=== PATIENT | female | born 1985 | race American Indian/Alaskan Native ===

== ENCOUNTER 2017-09-17 17:22 | Emergency (ER) | payer SELFPAY ==
[2017-09-17 17:31] VITALS: BP 124/88
[2017-09-17] MEDS ORDERED: NACL 0.9% 500 ML IR ONE (20:36)
[2017-09-17] MEDS ORDERED: XYLOCAINE 1% 20 mL ONE (20:47)
[2017-09-17] MEDS ORDERED: TYLENOL PO ONE (21:19)
[2017-09-17] MEDS ORDERED: MOTRIN PO ONE (21:19)
[2017-09-17] MEDS ORDERED: BOOSTRIX IM ONE (21:19)
[2017-09-17] MEDS ORDERED: XYLOCAINE 1% 20 mL INFILTRATI ONE (21:19)
--- NOTE | 2017-09-17 21:24 | Emergency Department Report ---
ED General Adult HPI - General Chief complaint: Fall Stated complaint: CHIN LAC Time Seen by Provider: 09/17/17 20:30 Source: patient Mode of arrival: Ambulatory Limitations: No Limitations - History of Present Illness Initial comments: This is a 32-year-old female who is unknown to this provider, reports that she is not . The patient presents to the ER with a complaint of chin laceration after mechanical trip and fall. Denies headache, neck pain, chest pain, abdominal pain, shortness of breath, weakness, numbness, unsteady gait. Patient can't recall her last tetanus vaccination, and she states that she is not . She thinks that she passed out for a quick second after the impact. -: Sudden Location: face Severity scale (0 -10): 0 Quality: aching Consistency: intermittent Improves with: rest Worsens with: movement Associated Symptoms: denies: confusion, chest pain, cough, diaphoresis, fever/ chills, headaches, loss of appetite, malaise, nausea/vomiting, rash, seizure, shortness of breath, syncope, weakness - Related Data Previous Rx's Medication Instructions Recorded Last Taken Type Acetaminophen [Tylenol Arthritis] 650 mg PO Q6HR PRN #30 tablet.er 09/17/17 Unknown Rx Bacitracin Zinc Oint [Antibiotic 20 applic TP BID #1 tube 09/17/17 Unknown Rx Oint] Ibuprofen [Motrin] 600 mg PO Q8H PRN #30 tablet 09/17/17 Unknown Rx Allergies Allergy/AdvReac Type Severity Reaction Status Date / Time No Known Allergies Allergy Unverified 09/17/17 17:28 ED Review of Systems ROS: Stated complaint: CHIN LAC Other details as noted in HPI Constitutional: denies: fever Eyes: denies: eye discharge ENT: denies: epistaxis Respiratory: denies: cough Cardiovascular: syncope. denies: chest pain Gastrointestinal: denies: abdominal pain, nausea, vomiting Genitourinary: denies: dysuria Musculoskeletal: denies: back pain Skin: other (laceration) Neurological: denies: weakness Psychiatric: denies: anxiety ED Past Medical Hx - Past Medical History Previous Medical History?: No - Surgical History Past Surgical History?: No - Social History Smoking Status: Current Every Day Smoker Substance Use Type: None - Medications Home Medications: Home Medications Medication Instructions Recorded Confirmed Last Taken Type Acetaminophen [Tylenol Arthritis] 650 mg PO Q6HR PRN #30 tablet.er 09/17/17 Unknown Rx Bacitracin Zinc Oint [Antibiotic 20 applic TP BID #1 tube 09/17/17 Unknown Rx Oint] Ibuprofen [Motrin] 600 mg PO Q8H PRN #30 tablet 09/17/17 Unknown Rx ED Physical Exam - General Limitations: No Limitations General appearance: alert, in no apparent distress - Head Head exam: Present: atraumatic, normocephalic, other (there is a 3 cm linear chin laceration. There is no foreign body.) - Eye Eye exam: Present: normal appearance, PERRL, EOMI. Absent: nystagmus - ENT ENT exam: Present: normal exam, normal orophraynx, mucous membranes moist, TM's normal bilaterally, normal external ear exam, other (there is no hemotympanum. There is no nasal septal hematoma.) - Neck Neck exam: Present: normal inspection, full ROM. Absent: tenderness, meningismus - Respiratory Respiratory exam: Present: normal lung sounds bilaterally. Absent: respiratory distress - Cardiovascular Cardiovascular Exam: Present: regular rate, normal rhythm, normal heart sounds. Absent: bradycardia, tachycardia, irregular rhythm, systolic murmur, diastolic murmur, rubs, gallop - GI/Abdominal GI/Abdominal exam: Present: soft, normal bowel sounds. Absent: distended, tenderness, guarding, rebound, rigid, pulsatile mass - Extremities Exam Extremities exam: Present: normal inspection, full ROM, normal capillary refill , other (the compartments are soft. 2+ pulses noted in the upper, lower extremities, no long bony tenderness, the pelvis is stable). Absent: pedal edema, joint swelling, calf tenderness - Back Exam Back exam: Present: normal inspection, full ROM. Absent: tenderness, CVA tenderness (R), paraspinal tenderness, vertebral tenderness - Neurological Exam Neurological exam: Present: alert (able to recall 3 out of 3 words at 0, and 3 out of 3 words at 5 minutes.), oriented X3, CN II-XII intact, normal gait ( normal gait, negative Romberg, negative pass pointing, no pronator drift), other (Extraocular movements intact. Tongue midline. No facial droop. Facial sensation intact to light touch in the V1, V2, V3 distribution bilaterally. 5 and 5 strength in 4 extremities.. Sensation is intact to light touch in 4 extremities.). Absent: motor sensory deficit - Psychiatric Psychiatric exam: Present: normal affect, normal mood - Skin Skin exam: Present: warm, dry, intact, normal color, other (skin laceration on the chin, 3 cm, simple, linear, no foreign body). Absent: rash ED Course Vital Signs 09/17/17 17:28 Temperature 97.8 F Pulse Rate 85 Respiratory 16 Rate Blood Pressure 124/88 O2 Sat by Pulse 99 Oximetry - Laceration /Wound Repair Medial Face Wound Location: face (chin) Wound Length (cm): 3 Wound's Depth, Shape: linear Wound Explored: no foreign body removed Irrigated w/ Saline (ccs): 250 Betadine Prep?: No Anesthesia: 1% Lidocaine Volume Anesthetic (ccs): 8 Wound Debrided: minimal Wound Repaired With: sutures Suture Size/Type: 5:0 (Ethilon) Number of Sutures: 8 Layer Closure?: No Sterile Dressing Applied?: No ED Medical Decision Making - Lab Data Vital Signs 09/17/17 17:28 Temperature 97.8 F Pulse Rate 85 Respiratory 16 Rate Blood Pressure 124/88 O2 Sat by Pulse 99 Oximetry - Medical Decision Making Differential diagnosis, including but not limited to: Chin laceration, mechanical fall, concussion Assessment and plan: 32-year-old female with no past medical history, needs a tetanus vaccination, reports not being , with mechanical fall, chin laceration, and transient loss of consciousness.Patient is clinically sober at this time. The cervical spine is cleared through nexus and serbian c spine rule GCS of 15, NIH score of 0. Physical exam is unremarkable with the exception of a chin laceration. The laceration was repaired after it was irrigated with sterile saline and adequate pressure. 8 interrupted 5-0 Ethilon monofilament sutures were placed. Extensive discussion had with the patient regarding neuro imaging. It is my opinion that given her normal neurologic examination and normal cognitive status , that she does not require neuroimaging. The patient agrees. Through shared decision making, we elected to not pursue advanced neuroimaging at a concern for radiation. The patient is reliable at this time. She'll be discharged. Critical care attestation.: If time is entered above; I have spent that time in minutes in the direct care of this critically ill patient, excluding procedure time. ED Disposition Clinical Impression: Chin laceration, Fall Disposition: [id number] TO HOME OR SELFCARE Is pt being admited?: No Does the pt Need Aspirin: No Condition: Stable Instructions: Suture Care (ED), Laceration (ED), Minor Head Injury (ED) Additional Instructions: Wash laceration with gentle soap and water every 8-12 hours. Have the laceration is inspected by a medical professional in 2 days. Have the sutures taken out in 5 days. Take pain medication as needed/directed. Rest and avoid heavy lifting and avoid contact sports and strenuous physical activity until cleared by a primary physician. Follow-up with her primary physician within the next month. Return to the ER right away with lethargy, irritability, projectile vomiting, change in mental status, confusion, inability to tolerate liquid feeds. Prescriptions: Acetaminophen [Tylenol Arthritis] 650 mg PO Q6HR PRN #30 tablet.er PRN Reason: Pain Bacitracin Zinc Oint [Antibiotic Oint] 20 applic TP BID #1 tube Ibuprofen [Motrin] 600 mg PO Q8H PRN #30 tablet PRN Reason: Pain Referrals: PRIMARY MD KENROY [Primary Care Provider] - 3-5 Days CLARISSE MURO MD [Staff Physician] - 3-5 Days
[2017-09-17] MEDS ORDERED: TRIPLE ANTIBIOTIC TP ONE (21:49)
== END 2017-09-17 22:07 | disposition home or self-care (01) ==
LOC: ED 17:22
DX: S01.81XA Laceration without foreign body of other part of head, initial encounter (principal); F17.200 Nicotine dependence, unspecified, uncomplicated; W01.118A Fall on same level from slipping, tripping and stumbling with subsequent striking against other sharp object, initial encounter; Y93.89 Activity, other specified; Y92.89 Other specified places as the place of occurrence of the external cause; Y99.8 Other external cause status
CPT/HCPCS: 90471; 90715; A6250